=== PATIENT | male | born 1965 | race Caucasian/White ===

== ENCOUNTER → 2016-08-17 | Outpatient (CLI) | payer OTHER ==
[~2016-08-17] MED LIST: DEPO METHYLPREDNISOLONE 80 MG/ML SDV ONE; IOPAMIDOL (ISOVUE 370) 100 ML BTL IV ONE; LIDOCAINE 1% 300 MG/30 ML SDV ONE; ROPIVACAINE HCL 150 MG/30 ML INJ ONE
== END ==
LOC: FIMAGING 12:40
PROVIDERS: ATTEND Orthopaedic Surgery
PROC: 3E0U33Z Introduction of Anti-inflammatory into Joints, Percutaneous Approach (ICD-10-PCS; principal; 2016-08-17)
PROC: 3E0U3BZ Introduction of Anesthetic Agent into Joints, Percutaneous Approach (ICD-10-PCS; principal; 2016-08-17)
DX: M25.551 Pain in right hip (principal)
CPT/HCPCS: J1040; J2795; Q9967

== ENCOUNTER 2016-10-06 05:21 | Inpatient (IN) | payer OTHER ==
--- NOTE | 2016-10-05 21:31 | PDHPUP ---
History & Physical Update H&P update statement: This history and physical update is based on an assessment of the patient which was completed after admission or registration (within 24 hours), but prior to the surgery/procedure.
[2016-10-06] MEDS ORDERED: FAMOTIDINE 20 MG TAB PO ONE (06:00)
[2016-10-06] MEDS ORDERED: ACETAMINOPHEN 325 MG TAB PO ONE (06:00)
[2016-10-06] MEDS ORDERED: DEXAMETHASONE 4 MG/ML VIAL IVP ONE (06:00)
[2016-10-06] MEDS ORDERED: ceFAZolin 2 GM/DEXTROSE 100 ML IV ONE ×2 (06:00→06:04)
[2016-10-06] MEDS ORDERED: ROPIVACAINE 0.2% 80 MG, EPINEPHrine 0.2 MG, KETOROLAC TROMETHAMINE 30 MG in BAG 0 ML IU ONE (06:00)
[2016-10-06] MEDS ORDERED: LR 1,000 ML IV ONE (06:04)
[2016-10-06] MEDS ORDERED: LIDOCAINE 1% 2 ML INJ ID PRN (06:04)
[2016-10-06] MEDS ORDERED: LIDOCAINE 1% 2 ML INJ ONE (06:06)
--- NOTE | 2016-10-06 06:40 | PDANEPAE ---
ANE History of Present Illness 51 yo M w OA here for R TKA ANE Past Medical History - Cardiovascular History Hx Hypertension: No Hx Arrhythmias: No Hx Chest Pain: No Hx Coronary Artery / Peripheral Vascular Disease: No Hx CHF / Valvular Disease: No Hx Palpitations: No - Pulmonary History Hx COPD: No Hx Asthma/Reactive Airway Disease: No Hx Recent Upper Respiratory Infection: No Hx Oxygen in Use at Home: No Hx Sleep Apnea: No Sleep Apnea Screening Result - Last Documented: Negative - Neurologic History Hx Cerebrovascular Accident: No Hx Seizures: No Hx Dementia: No Neurologic History Comment: H/A 's - Endocrine History Hx Diabetes: No - Renal History Hx Renal Disorders: No - Liver History Hx Hepatic Disorders: No - Neurological & Psychiatric Hx Hx Neurological and Psychiatric Disorders: Yes Neurological / Psychiatric History Comment: facet syndrome-CHUCK for low back pain. - Cancer History Hx Cancer: No - Congenital Disorder History Hx Congenital Disorders: No - GI History Hx Gastrointestinal Disorders: No Gastrointestinal History Comment: occ heartburn- TUMS & adjusts diet. - Other Health History Other Health History: OA R knee. Pt has generalized OA. - Chronic Pain History Chronic Pain: Yes (R knee) - Surgical History Prior Surgeries: hydrocelectomy-child. T and A- child. R knee scope. Bilat shoulder sx x2 ea.(labral tear and impingement). R thumb -removal of 2 bones. L thumb-removal of 1 bone. L total hip. L hip revision ([employer] poisoned pt). Septoplasty (exc "loose material" ANE Review of Systems - Exercise capacity METS (RN): 4 METS ANE Patient History - Allergies Allergies/Adverse Reactions: succinylcholine [Succinylcholine] Allergy (Severe, Verified 09/28/16 16:01) MALIGNANT HYPERTHERMIA - Home Medications Home medications: home medication list seen and reviewed Home Medications: TESTOSTERONE 09/28/16 [Last Taken 10/04/16] ZYRTEC 09/28/16 [Last Taken 09/22/16] - NPO status NPO Status: no food or drink >8 hours NPO Since - Liquids (Date): 10/05/16 NPO Since - Liquids (Time): 20:00 NPO Since - Solids (Date): 10/05/16 NPO Since - Solids (Time): 20:00 - Anes Hx Anes Hx: awareness under anesthesia (H/O MH) - Smoking Hx Smoking Status: Never smoked - Alcohol Use Alcohol Use: Rarely - Family Anes Hx Family Anes Hx: none ANE Labs/Vital Signs - Vital Signs Blood Pressure: 119/86 Heart Rate: 80 Respiratory Rate: 16 O2 Sat (%): 90 Height: 170.18 cm Weight: 99.79 kg ANE Physical Exam - Airway Neck exam: FROM Mallampati Score: Class 2 Mouth exam: normal dental/mouth exam, dsouza - Pulmonary Pulmonary: no respiratory distress, clear to auscultation - Cardiovascular Cardiovascular: regular rate and rhythym, no murmur, rub, or gallop - ASA Status ASA Status: II ANE Anesthesia Plan Anesthesia Plan: GA with mask, spinal
[2016-10-06] MEDS ORDERED: MIDAZOLAM 2 MG/2 ML VIAL IVP ONE (06:42)
[2016-10-06] MEDS ORDERED: ceFAZolin 1 GM/5 ML SYR ONE (07:04)
[2016-10-06] MEDS ORDERED: PROPOFOL/EMULSION 500 MG/50 ML BOTTLE IV ONE ×3 (07:22→09:14)
[2016-10-06] MEDS ORDERED: clonIDINE 1 MG/10 ML VIAL EP ONE (08:31)
[2016-10-06] MEDS ORDERED: ONDANSETRON 4 MG/2 ML VIAL IVP PRN ×2 (10:22→10:31)
[2016-10-06] MEDS ORDERED: NALOXONE HCL 0.4 MG/ML INJ IVP PRN (10:22)
[2016-10-06] MEDS ORDERED: OXYCODONE/APAP 5/325 TAB PO PRN (10:22)
[2016-10-06] MEDS ORDERED: fentaNYL 100 MCG/2 ML INJ IVP PRN (10:22)
[2016-10-06] MEDS ORDERED: LABETALOL HCL 50 MG/10 ML SYR IVP PRN (10:22)
[2016-10-06] MEDS ORDERED: LR 500 ML IV PRN (10:22)
[2016-10-06] MEDS ORDERED: diphenhydrAMINE 25 MG CAP PO PRN (10:31)
[2016-10-06] MEDS ORDERED: ONDANSETRON DISINTEGRATING 4 MG TAB PO PRN (10:31)
[2016-10-06] MEDS ORDERED: LACTULOSE 20 GM/30 ML UDCUP PO PRN (10:31)
[2016-10-06] MEDS ORDERED: PROMETHAZINE HCL 25 MG/ML INJ IVP PRN (10:31)
[2016-10-06] MEDS ORDERED: METOCLOPRAMIDE 10 MG/2 ML VIAL IVP PRN (10:31)
[2016-10-06] MEDS ORDERED: BISACODYL 10 MG SUPP PR PRN (10:31)
[2016-10-06] MEDS ORDERED: PHARMACY PAIN CONSULT 1 EA MISC PRN (10:31)
[2016-10-06] MEDS ORDERED: DIPHENOXYLATE/ATROPINE LOMOTIL 1 TAB PO PRN (10:31)
[2016-10-06] MEDS ORDERED: CYCLOBENZAPRINE 10 MG TAB PO PRN (10:31)
[2016-10-06] MEDS ORDERED: MAGNESIUM HYDROXIDE 30 ML UDCUP PO PRN (10:31)
[2016-10-06] MEDS ORDERED: POLYETHYLENE GLYCOL 3350 17 GM PKT PO PRN (10:31)
[2016-10-06] MEDS ORDERED: PROMETHAZINE HCL 25 MG SUPPR PR PRN (10:31)
[2016-10-06] MEDS ORDERED: TEMAZEPAM 15 MG CAP PO PRN (10:31)
--- NOTE | 2016-10-06 10:37 | POSTOPPROG ---
Post Op Note Date of Operation: 10/06/16 Surgeon: Cydney Chavira Senior Consumer Insights Consultant: DAYLIN Arreola Anesthesia: IV Sedation, Spinal Pre-op Diagnosis: DJD right knee Post-op Diagnosis: same Procedure: Right TKA Inf/Abcess present in the surg proc area at time of surgery?: No EBL: 50-100
[2016-10-06] MEDS ORDERED: LR 1,000 ML IV SCH (11:00)
[2016-10-06] MEDS: oxyCODONE IR 5 MG TAB PO PRN ×3 (13:01→17:34)
[2016-10-06] MEDS: KETOROLAC 30 MG/1 ML SDV IVP PRN (14:47)
[2016-10-06] MEDS: ceFAZolin 2 GM/DEXTROSE 100 ML IV SCH ×2 (14:57→21:27)
[2016-10-06] MEDS: ACETAMINOPHEN 325 MG TAB PO SCH ×2 (14:57→17:34)
--- NOTE | 2016-10-06 19:27 | GOP ---
[f rep st] OPERATIVE REPORT DATE OF OPERATION: 10/06/2016 SURGEON: Cydney Chavira MD OCCUPATIONAL THERAPY PROGRAM DIRECTOR: Scar Braden, HAMIDA ANESTHESIA: Spinal with sedation. PREOPERATIVE DIAGNOSIS: Severe osteoarthritis, right knee. POSTOPERATIVE DIAGNOSIS: Severe osteoarthritis, right knee. PROCEDURE PERFORMED: Right total knee arthroplasty with lateral release. FINDINGS: Preoperative x-rays of the patient's right knee demonstrated severe osteoarthritis with c omplete loss of the patellofemoral joint space, as well as moderate joint space narrowing of the lat eral compartment. At the time of surgery, this finding was confirmed. The patient had severe loss of the articular cartilage on the patella and in the lateral compartment. There was moderate involv ement of the medial compartment. A [employer] II total knee arthroplasty was implante d. A size 6 femoral component was utilized and the size 6 tibial component was also utilized. A 9 mm cross-linked polyethylene insert was used in the metal backing of the tibia. This was a posterio r stabilized total knee. A 35 mm round patellar component was utilized. Following implantation of the components, the knee was taken through a range of motion and achieved full extension and 135 deg lucius of flexion. There was lateral tracking of the patella so a lateral release was performed. ESTIMATED BLOOD LOSS: Less than 100 cc. DESCRIPTION OF PROCEDURE: The patient was taken to the operating room, placed in supine position on the operating table. Following placement of a spinal block and induction of adequate sedation, the knee and leg were prepped and draped in the usual sterile manner. The patient received 2 g of IV A ncef. The leg was elevated and exsanguinated, and the tourniquet inflated to 300 mmHg. The [facility] leg kessler was used throughout the procedure for positioning. A midline incision was made extendin g from 2 fingerbreadths superior to the superior pole of the patella distally to the tibial tubercle . Incision was carried down through the subcutaneous tissue to the retinaculum of the knee. A medi al parapatellar arthrotomy was then performed. The patella was everted laterally and the caliper wa s used to measure the thickness. A 9 mm thick cut was taken from the patella, using the patellar cl amp. The cut surface of the patella was then protected with a metal plate, and the patella was plac ed in the lateral gutter. The knee was flexed up and the distal femoral drill was used to open up t he femoral canal. Intramedullary referencing was used for the distal femoral cut. A +2 cut was keisha en on the distal femur. The femur was then sized. A size 6 component was chosen as the best fit. The size 6 cutting block was placed on the distal femur and the anterior, posterior and chamfer cuts were made. Once this was completed, the trial 6 component was placed on the distal femur, and the notch was cleared with the reamer, followed by the box osteotome. The distal femoral component was then removed from the femur and our attention was turned to the tibia. Again, intramedullary refere ncing was used for the tibial side. A drill hole was placed in the proximal tibia and then the intr amedullary laureano was inserted and the tibial cutting jig was positioned and pinned. The tibial cut wa s made. The patient did have quite a bit of medial tightness so the posterior capsule and the media l knee were released using a curved osteotome. The 9 mm thick lollipop was then placed to confirm a dequate balancing of the soft tissues and the extension and flexion gaps were acceptable and symmetr ical. The tibia was then sized. A size 6 tibial component was chosen. It was pinned and then keel punch was utilized. A trial reduction was performed with all the components and the 9 mm thick stef yethylene. The patient was quite tight in extension, so an additional 2 mm were taken from the prox imal tibia. The knee extended nicely with this additional cut. The trial components were removed a nd all the bony surfaces were thoroughly irrigated and dried. The cement was mixed. The tibial com ponent was then cemented into place, followed by the femoral component and then the knee was pulled into extension and held while the cement hardened. Patellar component was cemented at the same time . The 35 mm patellar component was placed, and then the patellar clamp was utilized to hold the pat aditya while the cement hardened. Excess cement was removed from around the edges of the components. Once the cement was hard, the knee was flexed up and the trial polyethylene was removed, and the 9 mm thick polyethylene was opened and inserted. Joint cocktail was placed in the posterior capsule p rior to implanting the polyethylene. The knee was again irrigated and then the retinaculum of the k nee was closed using #2 FiberWire in a figure-of-8 fashion. Subcutaneous tissues were closed using 2-0 Vicryl. The skin was closed using jennifer. Sterile dressings were applied. The patella did tr ack laterally so, prior to wound closure, a lateral release was performed with the Bovie. The patie nt tolerated the procedure well, and there were no complications. Estimated blood loss minimal. Fi nal sponge and needle counts were correct. The patient was transported to the recovery room in good condition. /[id number]/MODL
[2016-10-06] MEDS: FAMOTIDINE 20 MG TAB PO SCH (20:30)
[2016-10-06] MEDS: SENNOSIDES/DOCUSATE SODIUM TAB PO SCH (20:30)
[2016-10-07] MEDS: ACETAMINOPHEN 325 MG TAB PO SCH ×3 (00:11→12:16)
[2016-10-07] MEDS: KETOROLAC 30 MG/1 ML SDV IVP PRN (00:11)
[2016-10-07] MEDS: oxyCODONE IR 5 MG TAB PO PRN ×3 (04:31→12:20)
[2016-10-07 05:09] LABS: HEMATOCRIT 38.6 % (40.0-51.0); HEMOGLOBIN 13.6 g/dL (13.7-17.5)
[2016-10-07] MEDS: SENNOSIDES/DOCUSATE SODIUM TAB PO SCH (09:18)
[2016-10-07] MEDS: FAMOTIDINE 20 MG TAB PO SCH (09:19)
[2016-10-07 12:18] VITALS: O2SAT 92
[2016-10-07 12:44] VITALS: BP 112/75; PULSE 86; RESP 14; TEMP 98.7
--- NOTE | 2016-10-07 13:02 | PDIAF ---
- Diagnosis Diagnosis: DJD right knee Code Status: Full Code - Medication Management Discharge Medications: Medications to Continue on Transfer Testosterone Cypionate 200 mg IM Q7D 09/28/16 [Last Taken Unknown] Meloxicam 15 mg PO DAILY 10/06/16 [Last Taken Unknown] Discharge Medications: Refer to the Discharge Home Medication list for PRN reason. PICC Care - Routine: N/A - Orders Services needed: Home Care, Physical Therapy, Occupational Therapy Home Care Face to Face: I certify that this patient was under my care and that I had the required [id number] encounter meeting the encounter requirements on the discharge day. My findings support the fact that the patient is homebound as defined in CMS Chapter 7 Medicare Benefits Manual 30.1.1, The condition of the patient is such that there exists a normal inability to leave home and consequently, leaving home would require a considerable and taxing effort. Diet Recommendation: no restrictions on diet Diet Texture: Regular Texture Diet - Follow Up Care Current Providers and Referrals: DEVIKA LAMBERT [Primary Care Provider] - Cydney Chavira MD [Medical Doctor] -
== END 2016-10-07 15:02 | disposition home or self-care (01) | DRG 470 ==
LOC: FSGY 05:21 → F3N 10:31
PROVIDERS: ADMIT Orthopaedic Surgery; ATTEND Orthopaedic Surgery
PROC: 0SRD0J9 Replacement of Left Knee Joint with Synthetic Substitute, Cemented, Open Approach (ICD-10-PCS; principal; 2016-10-06 07:15)
DX: M17.12 Unilateral primary osteoarthritis, left knee (principal); M10.9 Gout, unspecified; Z96.641 Presence of right artificial hip joint
CPT/HCPCS: 97116-GP; 97161-GP; 97165-GO; C1713; J0171; J0690; J0735; J1100; J1885; J2250; J2405; J2550; J2704; J2795

== ENCOUNTER → 2016-10-10 | Outpatient (CLI) | payer OTHER | LOC: FIMAGING 14:43 | PROVIDERS: ATTEND Orthopaedic Surgery | DX: M79.604 Pain in right leg (principal); Z96.659 Presence of unspecified artificial knee joint ==